=== PATIENT | male | born 1980 | race Asian ===

== ENCOUNTER 2019-06-08 13:06 | Emergency (ER) | payer SELFPAY ==
[2019-06-08 13:25] VITALS: BP 122/70
[2019-06-08 13:55] LABS: BASOPHILS % (AUTO) 0.4 %; EOSINOPHILS # (AUTO) 0.3 10^3/uL (0.0-0.7); EOSINOPHILS % (AUTO) 7.3 %; HGB - HEMOGLOBIN 13.8 g/dL (14.0-18.0); LYMPHOCYTES # (AUTO) 1.4 10^3/uL (1.5-3.5); LYMPHOCYTES % (AUTO) 30.9 %; MEAN CORPUSCULAR HEMOGLOBIN 29.7 pg (27.0-31.0); MEAN CORPUSCULAR HGB CONC 31.7 g/dL (32.0-36.0); MEAN CORPUSCULAR VOLUME 93.8 fL (80.0-94.0); MEAN PLATELET VOLUME 9.7 fL (7.4-11.4); MONOCYTES # (AUTO) 0.3 10^3/uL (0.0-1.0); MONOCYTES % (AUTO) 6.9 %; NEUTROPHILS # (AUTO) 2.4 10^3/uL (1.5-6.6); NEUTROPHILS % (AUTO) 54.1 %; PLT - PLATELET COUNT 270 10^3/uL (130-450); RED BLOOD COUNT 4.64 10^6/uL (4.70-6.10); RED CELL DISTRIBUTION WIDTH 13.4 % (12.0-15.0); WHITE BLOOD COUNT 4.5 x10^3/uL (4.8-10.8)
--- NOTE | 2019-06-08 13:55 | ED Physician Documentation ---
History of Present Illness - Stated complaint Stated Complaint: WORK NOTE - Chief complaint Chief Complaint: General - History obtained from History obtained from: Patient - History of Present Illness Timing: Yesterday Severity Comments: moderate, but now is asymptomatic Quality: sharp Radiates to: radiates from upper abdomen into chest Improved by: unknown Worsened by: unknown Associated symptoms: Reports yesterday at work when he developed chest pain his stomach felt like he had a gas bubble and he felt nauseous and like he had to have a bowel movement. 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 - Treatment prior to arrival Treatment prior to arrival: none - Additonal information Additional information: Reports his grandparents had heart disease and strokes in their 80s and his dad in his 50s had a heart attack he thinks. Denies any hx of cardiac in any family members or hx of congenital heart disease. Review of Systems Ten Systems: 10 systems reviewed and negative Constitutional: denies: Fever Throat: reports: Reviewed and negative Cardiac: reports: Chest pain / pressure, Palpitations. denies: Pedal edema, Calf pain Respiratory: reports: Dyspnea. denies: Cough, Hemoptysis, Wheezing GI: reports: Abdominal Pain, Nausea. denies: Vomiting, Constipation, Diarrhea, Hematemesis, Bloody / black stool : reports: Reviewed and negative Skin: reports: Reviewed and negative Musculoskeletal: reports: Reviewed and negative Neurologic: reports: Reviewed and negative Psychiatric: reports: Reviewed and negative Endocrine: reports: Reviewed and negative Immunocompromised: reports: Reviewed and negative PD PAST MEDICAL HISTORY - Past Medical History Past Medical History: No - Allergies Allergies/Adverse Reactions: Allergies Allergy/AdvReac Type Severity Reaction Status Date / Time No Known Drug Allergies Allergy Verified 06/08/19 13:21 PD ED PE NORMAL - Vitals Vital signs reviewed: Yes - General General: Alert and oriented X 3, No acute distress, Well developed/nourished - HEENT HEENT: Atraumatic - Neck Neck: Supple, no meningeal sign - Cardiac Cardiac: RRR, No murmur, No gallop, No rub, Strong equal pulses - Respiratory Respiratory: No respiratory distress, Clear bilaterally - Abdomen Abdomen: Soft, Non tender, Non distended - Male Male : Deferred - Rectal Rectal: Deferred - Derm Derm: Normal color, Warm and dry, No rash - Extremities Extremities: No deformity, No tenderness to palpate, Normal ROM s pain, No edema, No calf tenderness / cord - Neuro Neuro: Alert and oriented X 3 Eye Opening: Spontaneous Motor: Obeys Commands Verbal: Oriented GCS Score: 15 - Psych Psych: Normal mood, Normal affect PD ED PE EXPANDED - Cardiac Cardiac: No: Chest wall TTP Results - Vitals Vitals: Vital Signs - 24 hr 06/08/19 13:22 Temperature 37 C Heart Rate 71 Respiratory 16 Rate Blood Pressure 122/70 O2 Saturation 99 Oxygen O2 Source Room air - EKG (time done) 13:42 Rate: Rate (enter#) (48) Rhythm: Sinus bradycardia [place]: Normal Intervals: Normal IN, QRS normal QRS: Normal Ischemia: ST elevation c/w repol Compare to prior EKG: Unchanged from prior EKG Computer interpretation: Agree with computer - Labs Labs: Laboratory Tests 06/08/19 06/08/19 06/08/19 13:50 13:50 13:50 WBC 4.5 L RBC 4.64 L Hgb 13.8 L Hct 43.5 MCV 93.8 MCH 29.7 MCHC 31.7 L RDW 13.4 Plt Count 270 MPV 9.7 Neut # (Auto) 2.4 Lymph # (Auto) 1.4 L [place] # (Auto) 0.3 Eos # (Auto) 0.3 Baso # (Auto) 0.0 Absolute Nucleated RBC 0.00 Nucleated RBC % 0.0 Sodium 142 Potassium 3.6 Chloride 106 Carbon Dioxide 27 Anion Gap 9.0 BUN 15 Creatinine 0.8 Estimated GFR (MDRD) 109 Glucose 88 Calcium 8.8 Troponin I High Sens 4.4 - Rads (name of study) CXR Radiology: Final report received, EMP read contemporaneously (no acute disease), See rad report PD MEDICAL DECISION MAKING - ED course Complexity details: reviewed results, re-evaluated patient, considered differential, d/w patient ED course: ddx- anxiety, PE, chest wall pain, costochondritis, GERD, gastritis, ACS, TAD 38 y/o M well appearing now asymptomatic with chest pain yesterday and dyspnea that was brief today and nonexertional. Normal examination, ekg, troponin and chest xray. He is PERC negative. No hx of recent travel or surgery. No hx of DVT/PE. He had some stomach pain and felt like he had to have a bowel movement yesterday with this pain and nausea thus suspect this may be GI related. Advised him to try pepcid if symptoms return otherwise pt is stable for discharge with outpt f/u. Departure - Departure Disposition: 01 Home, Self Care Clinical Impression: Atypical chest pain Condition: Stable Record reviewed to determine appropriate education?: Yes Instructions: ED Chest Pain Atypical Unkn Cause Follow-Up: your, doctor [Other] - As Needed Comments: Your labs, ekg, heart enzymes and chest xray today were all normal. You may return to work. If you are having recurrent symptoms you can try over the counter pepcid or zantac in case this is GERD. Follow up with your doctor to recheck your symptoms. Forms: Activity restrictions Discharge Date/Time: 06/08/19 14:38
[2019-06-08 14:05] LABS: CALCIUM 8.8 mg/dL (8.5-10.3); CREATININE 0.8 mg/dL (0.6-1.2)
--- NOTE | 2019-06-08 14:15 | XRAY Report ---
Reason: chest pain Procedure Date: 06/08/2019 Accession Number: [id number] / [id number] Procedure: XR - Chest 1 View X-Ray CPT Code: 99122 Final Report FULL RESULT: EXAM: CHEST RADIOGRAPHY EXAM DATE: 06/08/2019 01:52 PM. CLINICAL HISTORY: Chest pain. COMPARISON: None. TECHNIQUE: 1 view. FINDINGS: Lungs/Pleura: No focal opacities evident. No pleural effusion. No pneumothorax. Mediastinum: Within exam limitations, the cardiomediastinal contour is normal. Other: None. IMPRESSION: Normal single view chest. [facility]
== END 2019-06-08 14:38 | disposition home or self-care (01) ==
LOC: ED 13:06
DX: R07.89 Other chest pain (principal); R00.1 Bradycardia, unspecified; Z82.49 Family history of ischemic heart disease and other diseases of the circulatory system; Z82.3 Family history of stroke
CPT/HCPCS: 36415; 71045; 80048; 84484; 85025; 93005; 99284